=== PATIENT | female | born 1995 | race Caucasian/White ===

== ENCOUNTER 2020-02-12 17:05 | Emergency (ER) | payer MEDICAID ==
[2020-02-12] MEDS ORDERED: Acetaminophen 325 MG Tab PO ONE (17:33)
[2020-02-12] MEDS ORDERED: Sodium Chloride 0.9% 10 ML Syringe FLUSH PRN (17:33)
[2020-02-12] MEDS ORDERED: Sodium Chloride 0.9% 1,000 ML IV SCH (17:45)
--- NOTE | 2020-02-12 19:32 | EDM.PDOC ---
ED HPI GENERAL MEDICAL PROBLEM - General Chief Complaint: Headache Stated Complaint: NUMBNESS IN FINGERS AND FACE Time Seen by Provider: 02/12/20 17:23 Source of Information: Reports: Patient History Limitations: Reports: No Limitations - History of Present Illness INITIAL COMMENTS - FREE TEXT/NARRATIVE: Patient is a 24-year-old female presenting to the emergency department with complaints of generalized fatigue, intermittent headache, and today some mild numbness to the tips of her fingers on her bilateral hannds and lips. 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 Patient denies a known history of migraines. She is 25 weeks and states the has been healthy overall. She saw Dr. Augustin yesterday for a checkup and there were no concerns. Baby has been active and she has no concerns with regards to baby. She states her blood pressure is normally in the 100s over 60s systolic, however today it is slightly higher at 131/92. She denies any dysuria, frequency, fever, chills, nausea, or vomiting. She states she has had diarrhea intermittently for the last week. Patient was tested for COVID-19 2 days ago and was found to be negative. Headache Pain Score (Numeric/FACES): 5 - Related Data Allergies Allergy/AdvReac Type Severity Reaction Status Date / Time No Known Allergies Allergy Verified 02/12/20 17:21 Home Meds: Home Meds . 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 Denies: Fever, Chills HEENT: Reports: No Symptoms Respiratory: Reports: No Symptoms. Denies: Shortness of Breath, Cough Cardiovascular: Reports: No Symptoms. Denies: Chest Pain Endocrine: Reports: No Symptoms GI/Abdominal: Reports: No Symptoms. Denies: Abdominal Pain, Diarrhea, Nausea, Vomiting : Reports: No Symptoms Musculoskeletal: Reports: No Symptoms Skin: Reports: No Symptoms Neurological: Reports: Headache (mild intermittent), Other (slight numbness to bilateral fingertips and lips) Psychiatric: Reports: No Symptoms Hematologic/Lymphatic: Reports: No Symptoms Immunologic: Reports: No Symptoms - Physical Exam Exam: See Below Exam Limited By: No Limitations General Appearance: Alert, WD/WN, No Apparent Distress Eye Exam: Bilateral Eye: Normal Inspection, PERRL Ears: Normal External Exam, Normal Canal, Hearing Grossly Normal, Normal TMs Head Exam: Atraumatic, Normocephalic Respiratory/Chest: No Respiratory Distress, Lungs Clear, Normal Breath Sounds, No Accessory Muscle Use, Chest Non-Tender Cardiovascular: Normal Peripheral Pulses, Regular Rate, Rhythm, No Edema, No Gallop, No JVD, No Murmur, No Rub GI/Abdominal: Normal Bowel Sounds, Soft, Non-Tender, No Organomegaly, No Distention, No Abnormal Bruit, No Mass (Female) Exam: Heart Tones (153) Neuro Exam (Abbreviated): Alert, Oriented, CN II-XII Intact, Normal Cognition, Normal Gait, Normal Reflexes, No Motor/Sensory Deficits, Other (equal movements and grasps bilaterally. ) Extremities: Normal Inspection, Normal Range of Motion, Non-Tender, No Pedal Edema, Normal Capillary Refill Psychiatric: Normal Affect, Normal Mood Skin Exam: Warm, Dry, Intact, Normal Color, No Rash Course - Vital Signs Last Recorded V/S: Last Vital Signs Temp 98.3 F 02/12/20 17:15 Pulse 92 02/12/20 17:15 Resp 16 02/12/20 17:15 BP Pulse Ox 100 02/12/20 17:15 - Orders/Labs/Meds Orders: Active Orders 24 hr Category Date Time Status Peripheral IV Insertion Adult [OM.PC] Stat Oth 02/12/20 17:33 Ordered Labs: Laboratory Tests 02/12/20 02/12/20 02/12/20 Range/Units 17:40 17:45 17:50 WBC 8.60 (3.98-10.04) K/mm3 RBC 3.59 L (3.98-5.22) M/mm3 Hgb 11.6 (11.2-15.7) gm/dl Hct 34.4 (34.1-44.9) % MCV 95.8 H (79.4-94.8) fl MCH 32.3 H (25.6-32.2) pg MCHC 33.7 (32.2-35.5) g/dl RDW Std Deviation 44.1 (36.4-46.3) fL Plt Count 302 (182-369) K/mm3 MPV 8.6 L (9.4-12.3) fl Neut % (Auto) 64.2 (34.0-71.1) % Lymph % (Auto) 25.8 (19.3-51.7) % [place] % (Auto) 9.2 (4.7-12.5) % Eos % (Auto) 0.5 L (0.7-5.8) Baso % (Auto) 0.1 (0.1-1.2) % Neut # (Auto) 5.52 (1.56-6.13) K/mm3 Lymph # (Auto) 2.22 (1.18-3.74) K/mm3 [place] # (Auto) 0.79 H (0.24-0.36) K/mm3 Eos # (Auto) 0.04 (0.04-0.36) K/mm3 Baso # (Auto) 0.01 (0.01-0.08) K/mm3 Puncture Site Rt radial ABG pH 7.43 (7.35-7.45) ABG pCO2 34.8 L (35.0-45.0) mmHg ABG pO2 100.0 (80.0-100.0) mmHg ABG HCO3 22.7 (22.0-26.0) meq/L ABG O2 Saturation 98.0 H (96.0-97.0) % ABG Base Excess -0.7 (-2-2.0) Bryant Test Positive A-a Gradient 7 mmHg O2 Delivery Device Room air Oxygen Flow Rate 0.0 FiO2 21.00 (21.00-100.00) % Sodium (136-145) mEq/L Potassium (3.5-5.1) mEq/L Chloride (98-107) mEq/L Carbon Dioxide (21-32) mEq/L Anion Gap (5-15) BUN (7-18) mg/dL Creatinine (0.55-1.02) mg/dL Est Cr Clr Drug Dosing mL/min Estimated GFR (MDRD) (>60) mL/min BUN/Creatinine Ratio (14-18) Glucose (74-106) mg/dL Calcium (8.5-10.1) mg/dL Magnesium (1.8-2.4) mg/dl Total Bilirubin (0.2-1.0) mg/dL AST (15-37) U/L ALT (14-59) U/L Alkaline Phosphatase (46-116) U/L C-Reactive Protein (<1.0) mg/dL Total Protein (6.4-8.2) g/dl Albumin (3.4-5.0) g/dl Globulin gm/dL Albumin/Globulin Ratio (1-2) Urine Color Dark yellow (Yellow) Urine Appearance Clear (Clear) Urine pH 6.0 (5.0-8.0) Ur Specific [place] > or = 1.030 (1.005-1.030) Urine Protein 1+ H (Negative) Urine Glucose (UA) Trace H (Negative) Urine Ketones Negative (Negative) Urine Occult Blood Negative (Negative) Urine Nitrite Negative (Negative) Urine Bilirubin Negative (Negative) Urine Urobilinogen 0.2 (0.2-1.0) Ur Leukocyte Esterase Negative (Negative) Urine RBC Not seen (0-5) /hpf Urine WBC Not seen (0-5) /hpf Ur Squamous Epith Cells 5-10 H (0-5) /hpf Calcium Oxalate Crystal Few H (NONE) Urine Bacteria Many H (FEW) /hpf Urine Mucus Many H (FEW) /hpf 02/12/20 Range/Units 17:50 WBC (3.98-10.04) K/mm3 RBC (3.98-5.22) M/mm3 Hgb (11.2-15.7) gm/dl Hct (34.1-44.9) % MCV (79.4-94.8) fl MCH (25.6-32.2) pg MCHC (32.2-35.5) g/dl RDW Std Deviation (36.4-46.3) fL Plt Count (182-369) K/mm3 MPV (9.4-12.3) fl Neut % (Auto) (34.0-71.1) % Lymph % (Auto) (19.3-51.7) % [place] % (Auto) (4.7-12.5) % Eos % (Auto) (0.7-5.8) Baso % (Auto) (0.1-1.2) % Neut # (Auto) (1.56-6.13) K/mm3 Lymph # (Auto) (1.18-3.74) K/mm3 [place] # (Auto) (0.24-0.36) K/mm3 Eos # (Auto) (0.04-0.36) K/mm3 Baso # (Auto) (0.01-0.08) K/mm3 Puncture Site ABG pH (7.35-7.45) ABG pCO2 (35.0-45.0) mmHg ABG pO2 (80.0-100.0) mmHg ABG HCO3 (22.0-26.0) meq/L ABG O2 Saturation (96.0-97.0) % ABG Base Excess (-2-2.0) Bryant Test A-a Gradient mmHg O2 Delivery Device Oxygen Flow Rate FiO2 (21.00-100.00) % Sodium 142 (136-145) mEq/L Potassium 3.4 L (3.5-5.1) mEq/L Chloride 106 (98-107) mEq/L Carbon Dioxide 26 (21-32) mEq/L Anion Gap 13.4 (5-15) BUN 4 L (7-18) mg/dL Creatinine 0.6 (0.55-1.02) mg/dL Est Cr Clr Drug Dosing 156.34 mL/min Estimated GFR (MDRD) > 60 (>60) mL/min BUN/Creatinine Ratio 6.7 L (14-18) Glucose 103 (74-106) mg/dL Calcium 8.9 (8.5-10.1) mg/dL Magnesium 1.8 (1.8-2.4) mg/dl Total Bilirubin 0.1 L (0.2-1.0) mg/dL AST 16 (15-37) U/L ALT 24 (14-59) U/L Alkaline Phosphatase 58 (46-116) U/L C-Reactive Protein 1.5 H* (<1.0) mg/dL Total Protein 6.6 (6.4-8.2) g/dl Albumin 3.1 L (3.4-5.0) g/dl Globulin 3.5 gm/dL Albumin/Globulin Ratio 0.9 L (1-2) Urine Color (Yellow) Urine Appearance (Clear) Urine pH (5.0-8.0) Ur Specific [place] (1.005-1.030) Urine Protein (Negative) Urine Glucose (UA) (Negative) Urine Ketones (Negative) Urine Occult Blood (Negative) Urine Nitrite (Negative) Urine Bilirubin (Negative) Urine Urobilinogen (0.2-1.0) Ur Leukocyte Esterase (Negative) Urine RBC (0-5) /hpf Urine WBC (0-5) /hpf Ur Squamous Epith Cells (0-5) /hpf Calcium Oxalate Crystal (NONE) Urine Bacteria (FEW) /hpf Urine Mucus (FEW) /hpf Meds: Medications Discontinued Medications Generic Name Dose Route Start Last Admin Trade Name Freq PRN Reason Stop Dose Admin Acetaminophen 650 mg 02/12/20 17:33 02/12/20 17:57 Tylenol PO 02/12/20 17:34 650 mg NOW ONE Administration Sodium Chloride 1,000 mls @ 150 mls/hr 02/12/20 17:45 02/12/20 17:57 Normal Saline IV 150 mls/hr ASDIRECTED BRITTANY Administration Sodium Chloride 10 ml 02/12/20 17:33 02/12/20 17:57 Saline Flush FLUSH 10 ml ASDIRECTED PRN Administration Keep Vein Open - Re-Assessments/Exams Free Text/Narrative Re-Assessment/Exam: 02/12/20 19:30 Hematology was significant for potassium slightly low at 3.4, CRP 1.5. Urinalysis showed 1+ protein and trace glucose in her urine. Negative for infection. Blood pressure has improved to 100/58 with resting. Patient verbalized relief of headache with the Tylenol. I did call and speak with patient's [employer] SAL[employer] CONSULTANT, Dr. Augustin. Discussed patient's symptoms as well as results of testing. He recommended that we allow the patient to be discharged home and have him follow-up with him in the clinic next week for an ER follow-up. Discussed this with the patient and she is in agreement. Return to ER for worsening symptoms. Discharge instructions as documented. Departure - Departure Time of Disposition: 19:30 Disposition: Home, Self-Care 01 Condition: Good Clinical Impression: Headache Qualifiers: Headache type: unspecified Headache chronicity pattern: acute headache Intractability: not intractable Qualified Code(s): R51 - Headache - Discharge Information Instructions: General Headache Without Cause Referrals: Dago Osorio NP [Primary Care Provider] - Hood Augustin MD [Physician] - Forms: ED Department Discharge Additional Instructions: You were seen in the emergency department today for 1 week history of generalized fatigue, intermittent headaches, and onset of some numbness to the tips of your fingers and lips. Work-up in the ER included blood work, arterial blood glass gases, and urinalysis. Your blood work was found to be overall normal as was your urine. Your case was discussed with your [employer] MANA[employer] SALES CONSULTANT, and was recommended that you go home this weekend and rest to ensure that you are taking an adequate amount of fluid. You may continue to use [id number] Tylenol as needed for headache. Follow-up with Dr. Augustin or Alice ruiz NP next week for an ER follow-up and blood pressure recheck. Return to ER should any symptoms worsen. Sepsis Event Note (ED) - Evaluation Sepsis Screening Result: No Definite Risk - My Orders Last 24 Hours: My Active Orders 02/12/20 17:33 Peripheral IV Insertion Adult [OM.PC] Stat - Assessment/Plan Last 24 Hours: My Active Orders 02/12/20 17:33 Peripheral IV Insertion Adult [OM.PC] Stat
== END 2020-02-12 19:55 | disposition home or self-care (01) ==
LOC: JD.ED 17:05
DX: R51 Headache (principal)
CPT/HCPCS: 36415; 36600; 80053; 81001; 82803; 83735; 85025; 86140; 96360; 96361; 99284; A9270; J7030; 99283

== ENCOUNTER 2020-05-27 10:56 | Inpatient (IN) | payer MEDICAID ==
[2020-05-27] MEDS ORDERED: Ondansetron 4 MG/2 ML SDV IVPUSH PRN (12:58)
[2020-05-27] MEDS ORDERED: Sodium Chloride 0.9% 10 ML Syringe FLUSH PRN (12:58)
[2020-05-27] MEDS ORDERED: Nalbuphine 10 MG/1 ML Vial IVPUSH PRN (12:58)
[2020-05-27] MEDS ORDERED: Oxytocin/Lactated Ringers 10 UNIT/1,000 ML BAG IV SCH ×2 (13:00→13:15)
[2020-05-27] MEDS: Lactated Ringers 1,000 ML IV SCH ×3 (14:24→22:10)
[2020-05-27] MEDS ORDERED: diphenhydrAMINE 50 MG/ML SDV IVPUSH PRN (15:03)
[2020-05-27] MEDS ORDERED: ePHEDrine 50 MG/ML SDV IVPUSH PRN (15:03)
[2020-05-27] MEDS ORDERED: fentaNYL 100 MCG/2 ML SDV EPIDUR PRN (15:03)
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
[2020-05-27] MEDS: Bupivacaine/fentaNYL/NS 100 ML Bag EPIDUR PRN (21:21)
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
[2020-05-28] MEDS ORDERED: Bupivacaine 0.25% 10 ML SDV ONE
[2020-05-28] MEDS: Bupivacaine/fentaNYL/NS 100 ML Bag EPIDUR PRN ×2 (04:40→09:08)
[2020-05-28] MEDS ORDERED: Oxytocin/Lactated Ringers 20 UNIT/1,000 ML BAG IV SCH (05:30)
[2020-05-28] MEDS: Lactated Ringers 1,000 ML IV SCH (09:07)
[2020-05-28] MEDS ORDERED: Docusate Sodium 100 MG Cap PO PRN (12:04)
[2020-05-28] MEDS ORDERED: Witch Hazel Medicated Pads 40/Jar TOP PRN (12:04)
[2020-05-28] MEDS ORDERED: Benzocaine/Menthol 20%-0.5% Spray 56 GM Canister TOP PRN (12:04)
[2020-05-28] MEDS ORDERED: Acetaminophen 325 MG Tab PO PRN (12:04)
--- NOTE | 2020-05-28 12:07 | PCM.SN.2 ---
- Free Text/Narrative Note: Delivery note: Corinna is a 24-year-old 2 para 1-0-0-1 white female who was admitted on 05/27/2020 at 40-0/7 weeks gestational age with an SAVANA of 05/27/2020 for elective induction of labor. History of gestational diabetes and was on glyburide 5 mg p.o. nightly with good resulting blood sugars. She is admitted for induction of labor. She underwent Pitocin induction of labor with AROM augmentation. She had epidural in place for labor analgesia. She made good steady progress and became completely dilated by approximately 0900 hrs. She went on to deliver a viable, esqueda, 9 pound 1 ounce (4100 g) male infant named Jovon Morataya at 1056 hrs. on 05/28/2020. The baby delivered in a direct occiput anterior position. Shoulders were delivered after reduction of a loose nuchal cord or the baby's head. Anterior shoulder delivered with gentle downward traction and posterior shoulder with gentle upward traction. The baby was placed on mom's abdomen and the baby was dried with warm blanket and nose and mouth were bulb suction. scores were 7 and 9, length was 21.5 inches. Immediately upon delivery Pitocin was increased to 500 cc/h with 20 units of Pitocin in a liter of fluid. The umbilical cord is allowed to pulsate x3 minutes and then was clamped x2 and cut by the baby's father Arun. There were 3 vessels umbilical cord. Umbilical cord blood was obtained. The placenta delivered in a Aguilar presentation at 1110 hrs. It appeared intact, complete and was discarded per patient desire. Patient had a right labial laceration which was repaired with 3-0 Monocryl suture with 3 interrupted sutures. A second-degree perineal laceration was repaired in a routine fashion also with 3-0 Monocryl suture. Labor epidural analgesia was used for perineal and right labial laceration repair anesthesia. Patient tolerated the procedure well. Estimated blood loss was 300 cc. Patient plans to breast-feed. Condition: Good.
[2020-05-28] MEDS: Ibuprofen 600 MG Tab PO PRN ×3 (13:23→23:22)
--- NOTE | 2020-05-28 15:35 | PCM48HPAN ---
Post Anesthesia Note - EVALUATION WITHIN 48HRS OF ANESTHETIC Vital Signs in Normal Range: Yes Patient Participated in Evaluation: Yes Respiratory Function Stable: Yes Airway Patent: Yes Cardiovascular Function Stable: Yes Hydration Status Stable: Yes Pain Control Satisfactory: Yes Nausea and Vomiting Control Satisfactory: Yes Mental Status Recovered: Yes Vital Signs: Last Vital Signs Temp 37.3 C 05/27/20 13:10 Pulse 106 H 05/27/20 13:10 Resp 18 05/27/20 13:10 BP 135/91 H 05/27/20 13:10 Pulse Ox 99 05/27/20 13:10 - COMMENTS/OBSERVATIONS Free Text/Narrative:: no anesthesia complications noted
[2020-05-29] MEDS: Ibuprofen 600 MG Tab PO PRN ×3 (03:32→12:28)
[2020-05-29] MEDS ORDERED: Prenatal Multivitamin with Calcium/Folic Acid/Iron Tab PO SCH (09:00)
--- NOTE | 2020-05-29 11:46 | PCM.DCSUM1 ---
Discharge Summary - Hospital Course Free Text/Narrative:: Corinna is a 24-year-old 2 para 1-0-0-1 white female who was admitted on 05/27/2020 at 40-0/7 weeks gestational age with an SAVANA of 05/27/2020 for elective induction of labor. History of gestational diabetes and was on glyburide 5 mg p.o. nightly with good resulting blood sugars. She is admitted for induction of labor. She underwent Pitocin induction of labor with AROM augmentation. She had epidural in place for labor analgesia. She made good st emerson progress and became completely dilated by approximately 0900 hrs. She went on to deliver a viable, esqueda, 9 pound 1 ounce (4100 g) male named Jovon Morataya at 1056 hrs. on 05/28/2020. The baby delivered in a direct occiput anterior position. Shoulders were delivered after reduction of a loose nuchal cord or the baby's head. Anterior shoulder delivered with gentle downward traction and posterior shoulder with gentle upward traction. The baby was placed on mom's abdomen and the baby was dried with warm blanket and nose and mouth were bulb suction. scores were 7 and 9, length was 21.5 inches. Immediately upon delivery Pitocin was increased to 500 cc/h with 20 units of Pitocin in a liter of fluid. The umbilical cord is allowed to pulsate x3 minutes and then was clamped x2 and cut by the baby's father Arun. There were 3 vessels umbilical cord. Umbilical cord blood was obtained. The placenta delivered in a Aguilar presentation at 1110 hrs. It appeared intact, complete and was discarded per patient desire. Patient had a right labial laceration which was repaired with 3-0 Monocryl suture with 3 interrupted sutures. A second-degree perineal laceration was repaired in a routine fashion also with 3-0 Monocryl suture. Labor epidural analgesia was used for perineal and right labial laceration repair anesthesia. Patient tolerated the procedure well. Estimated blood loss was 300 cc. Patient plans to breast-feed. patient is done very well. She is nursing without problems, has minimal lochia, is voiding well and is ambulating without concerns. She is desiring discharge home. Diagnosis: 1. 40-week , history of previous section with successful delivery Condition: Good. - Discharge Data Discharge Date: 05/29/20 Discharge Disposition: Home, Self-Care 01 Condition: Good - Referral to Home Health Primary Care Physician: Hood Augustin MD - Patient Instructions Diet: Regular Diet as Tolerated (Nursing diet with increased calories and calcium as recommended) Activity: As Tolerated (No intercourse or tampons until bleeding resolves) Driving: May Drive Today Showering/Bathing: May Shower Showering/Bathing, Other: May take a bath Notify Provider of: Fever, Increased Pain, Swelling and Redness, Nausea and/or Vomiting - Discharge Plan Home Medications: Home Meds Ferrous Sulfate [Iron] 325 mg PO 05/27/20 [History] Vits #93/Iron Fum/FA [ Formula Tablet] 05/27/20 [History] Acetaminophen [Tylenol] 650 mg PO Q4H PRN tablet 05/29/20 [Rx] Ibuprofen [Motrin] 600 mg PO Q4H PRN tablet 05/29/20 [Rx] Referrals: Hood Augustin MD [Primary Care Provider] - (Return to clinic[facility] weeks.) - Discharge Summary/Plan Comment DC Time >30 min.: No Discharge Summary/Plan Comment: Discharge instructions: 1. Discharge home 2. Diet, activity and follow-up discussed with patient. Recommend nursing diet with increased calories and calcium. 3. Precautions given concern increased pain, bleeding, temperature, signs/symptoms of DVT/PE. 4. Medications per home medication was printed, discussed with and given to the patient. 5. Return to clinic-Dr. Augustin-[facility] in 2 weeks. Diagnosis: Term -delivered Condition: Good - Patient Data Vitals - Most Recent: Last Vital Signs Temp 36.4 C 05/29/20 03:35 Pulse 79 05/29/20 03:35 Resp 16 05/28/20 20:50 BP 127/76 05/29/20 03:35 Pulse Ox 97 05/29/20 03:35 Weight - Most Recent: 111.085 kg Med Orders - Current: Current Medications Acetaminophen (Tylenol) 650 mg PO Q4H PRN PRN Reason: mild pain or fever Last Admin: 05/28/20 20:26 Dose: 650 mg Documented by: Benzocaine/Menthol (Dermoplast Pain Relief Moran) 0 gm TOP ASDIRECTED PRN PRN Reason: Perineal Comfort Measure Last Admin: 05/28/20 13:23 Dose: 1 applic Documented by: Docusate Sodium (Colace) 100 mg PO BID PRN PRN Reason: Constipation Last Admin: 05/28/20 20:27 Dose: 100 mg Documented by: Ibuprofen (Motrin) 600 mg PO Q4H PRN PRN Reason: Mild pain or fever Last Admin: 05/29/20 08:13 Dose: 600 mg Documented by: Faustinaat Multivit/Substance Abuse Rn/Iron/Folic Ac ( Plus Iron) 1 each PO DAILY BRITTANY Last Admin: 05/29/20 08:13 Dose: 1 each Documented by: Kerri Palmer ([facility]) 1 pad TOP ASDIRECTED PRN PRN Reason: Perineal Comfort Measure Last Admin: 05/28/20 13:22 Dose: 1 applic Documented by: Discontinued Medications Bupivacaine HCl (Sensorcaine-Mpf 0.25%) 10 ml .ROUTE .[facility] Stop: 05/28/20 00:01 Diphenhydramine HCl (Benadryl) 25 mg IVPUSH Q6H PRN PRN Reason: pruritis Ephedrine Sulfate (Ephedrine Sulfate) 5 mg IVPUSH ASDIRECTED PRN PRN Reason: Hypotension Fentanyl (Sublimaze) 100 mcg EPIDUR Q3H PRN PRN Reason: Pain Last Admin: 05/27/20 21:20 Dose: 100 mcg Documented by: Fentanyl/Bupivacaine HCl (Fentanyl/Bupivacaine/Ns 2 Mcg-0.125% 100 Ml) 100 ml EPIDUR ASDIRECTED PRN PRN Reason: Pain Last Admin: 05/28/20 09:08 Dose: 100 ml Documented by: Oxytocin/Lactated Ringer's (Pitocin In Lr 10 Units/1,000 Ml) 10 unit in 1,000 mls @ 500 mls/hr IV .CONTINUOUS BRITTANY Lactated Ringer's (Ringers, Lactated) 1,000 mls @ 100 mls/hr IV ASDIRECTED BRITTANY Last Admin: 05/28/20 09:07 Dose: 100 mls/hr Documented by: Oxytocin/Lactated Ringer's (Pitocin In Lr 10 Units/1,000 Ml) 10 unit in 1,000 mls @ 12 mls/hr IV TITRATE BRITTANY; Protocol Last Titration: 05/28/20 04:15 Dose: 20 munits/min, 120 mls/hr Documented by: Oxytocin/Lactated Ringer's (Pitocin In Lr 20 Units/1,000 Ml) 20 unit in 1,000 mls @ 66 mls/hr IV TITRATE BRITTANY; Protocol Last Admin: 05/28/20 05:28 Dose: 66 mls/hr Documented by: Nalbuphine HCl (Nubain) 10 mg IVPUSH Q2H PRN PRN Reason: Pain Ondansetron HCl (Zofran) 4 mg IVPUSH Q4H PRN PRN Reason: Nausea/Vomiting Sodium Chloride (Saline Flush) 10 ml FLUSH ASDIRECTED PRN PRN Reason: Keep Vein Open
== END 2020-05-29 16:00 | disposition home or self-care (01) | DRG 807 ==
LOC: JD.OB 10:56 → OBSVTOIN 05-28 10:56 → JD.OB 05-28 10:57
PROVIDERS: ADMIT Obstetrics & Gynecology; ATTEND Obstetrics & Gynecology
PROC: 10E0XZZ Delivery of Products of Conception, External Approach (ICD-10-PCS; principal; 2020-05-28)
PROC: 0KQM0ZZ Repair Perineum Muscle, Open Approach (ICD-10-PCS; 2020-05-28)
PROC: 10907ZC Drainage of Amniotic Fluid, Therapeutic from Products of Conception, Via Natural or Artificial Opening (ICD-10-PCS; 2020-05-28)
PROC: 0UQMXZZ Repair Vulva, External Approach (ICD-10-PCS; 2020-05-28)
PROC: 3E033VJ Introduction of Other Hormone into Peripheral Vein, Percutaneous Approach (ICD-10-PCS; 2020-05-28)
PROC: 3E0R3BZ Introduction of Anesthetic Agent into Spinal Canal, Percutaneous Approach (ICD-10-PCS; 2020-05-28)
PROC: 00HU33Z Insertion of Infusion Device into Spinal Canal, Percutaneous Approach (ICD-10-PCS; 2020-05-28)
DX: O99.02 Anemia complicating childbirth (principal); Z37.0 Single live birth; D64.9 Anemia, unspecified; O99.52 Diseases of the respiratory system complicating childbirth; J45.909 Unspecified asthma, uncomplicated; Z3A.40 40 weeks gestation of pregnancy; O24.425 Gestational diabetes mellitus in childbirth, controlled by oral hypoglycemic drugs; O70.1 Second degree perineal laceration during delivery; Z20.828 Contact with and (suspected) exposure to other viral communicable diseases
CPT/HCPCS: 01967; 36415; 51702; 59025; 59409; 85025; 86592; 86850; 86900; 86901; A9270-GY; J2590; J3010; J3490; J7120; U0002